=== PATIENT | male | born 1985 | race Two or more races ===

== ENCOUNTER 2019-10-06 09:14 | Inpatient (IN) | payer OTHER ==
[~2019-10-06] VITALS: Ht 175.3 cm; Wt 85.4 kg
[~2019-10-06 09:14] MED LIST: ETOMIDATE 40 MG/20 ML ONE; PROPOFOL 10 MG/ML, 100ML IV ONE; SUCCINYLCHOLINE 20 MG/ML, 10ML ONE
[2019-10-06] MEDS ORDERED: SODIUM CHLORIDE FLUSH 10ML SYR IVF ONE (09:30)
[2019-10-06] MEDS ORDERED: ETOMIDATE 40 MG/20 ML IVPush ONE (09:30)
[2019-10-06] MEDS ORDERED: SODIUM CHLORIDE 0.9% 1,000 ML IV ONE (09:30)
[2019-10-06] MEDS ORDERED: SUCCINYLCHOLINE 20 MG/ML, 10ML IVPush ONE (09:30)
[2019-10-06] MEDS ORDERED: SODIUM CHLORIDE 0.9% 1,000ML IVBOLUS ONE (09:30)
[2019-10-06 10:04] LABS: BASOPHILS # (AUTO) 0.03 x10^3/uL (0-0.1); BASOPHILS % (AUTO) 0 % (0-1); EOSINOPHILS # (AUTO) 0.05 x10^3/uL (0-0.4); EOSINOPHILS % (AUTO) 1 % (1-7); LYMPHOCYTES # (AUTO) 2.28 x10^3/uL (1-3.4); LYMPHOCYTES % (AUTO) 25 % (22-44); MD NO; MEAN CORPUSCULAR HEMOGLOBIN 31.5 pg (27.5-34.5); MEAN CORPUSCULAR HGB CONC 33.2 g/dL (33.2-36.2); MEAN CORPUSCULAR VOLUME 94.9 fL (81-97); MEAN PLATELET VOLUME 6.3 fL (7.4-10.4); MONOCYTES # (AUTO) 0.51 x10^3/uL (0.2-0.8); MONOCYTES % (AUTO) 6 % (2-9); NEUTROPHILS # (AUTO) 6.36 x10^3/uL (1.8-6.8); NEUTROPHILS % (AUTO) 69 % (42-75); PLATELET COUNT 284 x10^3/uL (130-400); RED BLOOD COUNT 5.39 x10^6/uL (4.38-5.82); RED CELL DISTRIBUTION WIDTH 13.2 % (9.4-14.8)
[2019-10-06 10:16] LABS: MICROSCOPIC AUTO
[2019-10-06 10:17] LABS: ALANINE AMINOTRANSFERASE 34 U/L (12-78); ALBUMIN 3.9 g/dL (3.4-5.0); ANION GAP 11 mmol/L (5-15); CALCIUM 8.1 mg/dL (8.5-10.1); CHLORIDE 105 mmol/L (98-107); CREATININE 1.05 mg/dL (0.7-1.3)
[2019-10-06 10:19] LABS: ALKALINE PHOSPHATASE 85 U/L (45-117); BILIRUBIN,TOTAL 2.5 mg/dL (0.2-1.0); TOTAL PROTEIN 7.3 g/dL (6.4-8.2)
[2019-10-06] MEDS ORDERED: PROPOFOL 100 ML IV PRN (10:23)
[2019-10-06 10:27] LABS: SALICYLATE LEVEL < 1.7 mg/dL (2.8-20.0)
[2019-10-06 10:39] LABS: AMPHETAMINE SCREEN, URINE Negative (Negative); BARBITURATE SCREEN, URINE Negative (Negative); BENZODIAZEPINE SCREEN, URINE Negative (Negative); CANNABINOID SCREEN, URINE Positive (Negative); COCAINE SCREEN, URINE Negative (Negative); METHADONE SCREEN, URINE Negative (Negative); OPIATE SCREEN, URINE Negative (Negative)
[2019-10-06 10:57] LABS: FIO2 100 %
--- NOTE | 2019-10-06 10:58 | NUR ---
Late entry due to pt care: Pt GEO DAVIES at 0914 this morning. Pt was found on ground outside [facility] this morning. On EMS arrival pt's FSBS was 44. After admin of D10 IV by EMS pt's FSBS raised to 156. Pt remained unresponsive after this so Narcan was administered by EMS. Pt remained unresponsive. Emesis noted by EMS on ground by pt. Pt arrived to ER rm 41 and remained unresponsive, Dr. Au at bedside. Per Dr. Au pt to be intubated. Pt intubated at 0927 with an 8.0 tube, 25cm@teeth. Pt's skin PWD, no wounds noted. Pt unresponsive to interventions (markham, OG tube insertion, PIV insertion), no withdrawl from painful stimuli. Dr. Au updated on pt condition. All monitors are in place, all safety measures observed.
[2019-10-06 11:02] LABS: INTERNATIONAL NORMALIZED RATIO 0.89 (0.93-1.1); PROTHROMBIN TIME 9.2 Seconds (9.6-11.5)
[2019-10-06] MEDS ORDERED: DEXTROSE 50%, 50ML SYRINGE ONE (11:38)
--- NOTE | 2019-10-06 11:42 | NUR ---
Pt FSBS =24. Dr. Au notified. Pt given 1 amp D50 IVP.
[2019-10-06] MEDS ORDERED: DEXTROSE 50%, 50ML SYRINGE IVPush ONE (12:00)
[2019-10-06] MEDS ORDERED: SODIUM CHLORIDE 0.9% 1,000 ML IV SCH (12:49)
--- NOTE | 2019-10-06 12:55 | NUR ---
Dr. Au updated on pt's VS and FSBS. No new orders recieved.
[2019-10-06] MEDS ORDERED: ONDANSETRON 2MG/ML, 2ML IVPush PRN (13:00)
--- NOTE | 2019-10-06 13:05 | NUR ---
Attempt x1 to call report to floor.
--- NOTE | 2019-10-06 13:10 | NUR ---
Pt unresponsive to painful stimuli. Pupils pinpoint and fixed.
[2019-10-06 13:33] LABS: TROPONIN I < 0.015 ng/mL (0.000-0.045)
--- NOTE | 2019-10-06 13:46 | NUR ---
Report called to Clementina JEFFERY in CCU. Floor ready for pt transport.
[2019-10-06] MEDS ORDERED: NOREPINEPHRINE 8 MG in SODIUM CHLORIDE 0.9% 242 ML IV PRN (14:08)
[2019-10-06] MEDS: D5%-0.9% NACL 1,000 ML IV SCH (14:16)
[2019-10-06] MEDS ORDERED: GLUCAGON 1 MG IM PRN ×2 (14:30→16:00)
[2019-10-06] MEDS ORDERED: PHARMACY MAY ADJ FOR RENAL FX MC SCH (14:30)
[2019-10-06] MEDS ORDERED: SENNA 176 MG/5 ML ORAL SOL NG PRN (14:30)
[2019-10-06] MEDS ORDERED: DEXTROSE 4 GM TAB.CHEW PO PRN ×2 (14:30→16:00)
[2019-10-06] MEDS ORDERED: MIDAZOLAM 1 MG/ML, 2ML IVPush PRN (14:30)
[2019-10-06] MEDS ORDERED: DEXTROSE 50%, 50ML SYRINGE IVPush PRN ×2 (14:30→16:00)
[2019-10-06] MEDS ORDERED: SENNA/DOCUSATE TABLET NG PRN (14:30)
[2019-10-06] MEDS ORDERED: BISACODYL 10 MG SUPP PR PRN (14:30)
[2019-10-06] MEDS ORDERED: LACTULOSE 20 GM/30 ML UDC NG PRN (14:30)
[2019-10-06] MEDS ORDERED: LIDOCAINE-MPF 1%, 2ML ENDO PRN (14:30)
[2019-10-06] MEDS ORDERED: FENTANYL PF 100 MCG/2ML IVPush PRN (14:30)
[2019-10-06] MEDS: ENOXAPARIN 40 MG/0.4 ML SQ SCH (14:50)
[2019-10-06 14:58] VITALS: BP 110/78
[2019-10-06 15:01] LABS: TROPONIN I < 0.015 ng/mL (0.000-0.045)
[2019-10-06 15:18] LABS: INTERNATIONAL NORMALIZED RATIO 0.89 (0.93-1.1); PROTHROMBIN TIME 9.2 Seconds (9.6-11.5)
[2019-10-06] MEDS ORDERED: POTASSIUM CHLORIDE 40 MEQ in SODIUM CHLORIDE 0.9% 500 ML IV ONE (16:00)
[2019-10-06] MEDS: AMPICILLIN/SULBACTAM 3 GM in SODIUM CHLORIDE 0.9% 100 ML IV SCH ×2 (16:26→22:20)
[2019-10-06] MEDS: PROPOFOL 100 ML IV PRN ×2 (17:28→21:09)
[2019-10-06] MEDS: THIAMINE 200 MG in SODIUM CHLORIDE 0.9% 50 ML IV SCH (17:59)
[2019-10-06 19:48] LABS: ANION GAP 7 mmol/L (5-15); CALCIUM 6.8 mg/dL (8.5-10.1); CHLORIDE 114 mmol/L (98-107); CREATININE 0.92 mg/dL (0.7-1.3)
[2019-10-06 19:52] LABS: TROPONIN I < 0.015 ng/mL (0.000-0.045)
[2019-10-06] MEDS ORDERED: SODIUM CHLORIDE FLUSH 10ML SYR IVF SCH (21:00)
[2019-10-06] MEDS: SODIUM CHLORIDE FLUSH 10ML SYR IVF SCH (21:08)
[2019-10-07] MEDS: PROPOFOL 100 ML IV PRN ×3 (00:03→07:57)
[2019-10-07] MEDS: MIDAZOLAM HCL 50 MG in SODIUM CHLORIDE 0.9% 40 ML IV PRN ×2 (00:29→06:29)
[2019-10-07] MEDS: D5%-0.9% NACL 1,000 ML IV SCH (02:07)
[2019-10-07] MEDS: AMPICILLIN/SULBACTAM 3 GM in SODIUM CHLORIDE 0.9% 100 ML IV SCH ×2 (03:53→10:18)
[2019-10-07 04:56] LABS: BASOPHILS # (AUTO) 0.02 x10^3/uL (0-0.1); BASOPHILS % (AUTO) 0 % (0-1); EOSINOPHILS # (AUTO) 0.02 x10^3/uL (0-0.4); EOSINOPHILS % (AUTO) 0 % (1-7); LYMPHOCYTES # (AUTO) 1.48 x10^3/uL (1-3.4); LYMPHOCYTES % (AUTO) 18 % (22-44); MD NO; MEAN CORPUSCULAR HEMOGLOBIN 31.5 pg (27.5-34.5); MEAN CORPUSCULAR HGB CONC 33.1 g/dL (33.2-36.2); MEAN CORPUSCULAR VOLUME 95.4 fL (81-97); MEAN PLATELET VOLUME 6.2 fL (7.4-10.4); MONOCYTES % (AUTO) 5 % (2-9); NEUTROPHILS # (AUTO) 6.19 x10^3/uL (1.8-6.8); NEUTROPHILS % (AUTO) 76 % (42-75); PLATELET COUNT 192 x10^3/uL (130-400); RED BLOOD COUNT 4.57 x10^6/uL (4.38-5.82); RED CELL DISTRIBUTION WIDTH 13.3 % (9.4-14.8)
[2019-10-07 04:57] LABS: CHLORIDE 116 mmol/L (98-107)
[2019-10-07 05:00] VITALS: BP 94/64
[2019-10-07 05:07] LABS: ALANINE AMINOTRANSFERASE 29 U/L (12-78); ALBUMIN 2.9 g/dL (3.4-5.0); ALKALINE PHOSPHATASE 51 U/L (45-117); ANION GAP 6 mmol/L (5-15); BILIRUBIN,TOTAL 0.8 mg/dL (0.2-1.0); CALCIUM 7.2 mg/dL (8.5-10.1); CREATININE 0.93 mg/dL (0.7-1.3); PREALBUMIN 25.8 mg/dL (20.0-40.0); TOTAL PROTEIN 5.7 g/dL (6.4-8.2)
[2019-10-07] MEDS ORDERED: PANTOPRAZOLE 40 MG IV IVPush SCH (07:30)
[2019-10-07] MEDS: SODIUM CHLORIDE FLUSH 10ML SYR IVF SCH (07:30)
[2019-10-07] MEDS ORDERED: D5%-0.45% NACL 1,000 ML IV SCH (09:00)
[2019-10-07] MEDS ORDERED: DEXMEDETOMIDINE 400 MCG in SODIUM CHLORIDE 0.9% 96 ML IV PRN (09:00)
[2019-10-07] MEDS: THIAMINE 200 MG in SODIUM CHLORIDE 0.9% 50 ML IV SCH (09:05)
[2019-10-07] MEDS ORDERED: MULTIVIT-MINERALS/IRON ORAL SOL PO SCH (11:30)
[2019-10-07] MEDS ORDERED: MULTIVIT.W/IRON, MINERALS ORAL SOL PO SCH (11:30)
[2019-10-07] MEDS ORDERED: MULTIVITAMIN 1 TABLET PO SCH (11:30)
[2019-10-07] MEDS ORDERED: CHLORDIAZEPOXIDE 25 MG CAPSULE PO SCH (11:30)
[2019-10-07] MEDS ORDERED: FOLIC ACID 1 MG TABLET PO SCH (11:30)
[2019-10-07] MEDS: ENOXAPARIN 40 MG/0.4 ML SQ SCH (12:56)
== END 2019-10-07 13:20 | disposition left against medical advice (07) | DRG 91 ==
LOC: EDBD 09:14 → ED 11:09 → EDIP 11:26 → CCU 14:00
PROVIDERS: ADMIT Internal Medicine; ATTEND Internal Medicine
PROC: 0T9B70Z Drainage of Bladder with Drainage Device, Via Natural or Artificial Opening (ICD-10-PCS; principal; 2019-10-06)
PROC: 0BH17EZ Insertion of Endotracheal Airway into Trachea, Via Natural or Artificial Opening (ICD-10-PCS; 2019-10-06)
PROC: 5A1935Z Respiratory Ventilation, Less than 24 Consecutive Hours (ICD-10-PCS; 2019-10-06)
DX: G92 Toxic encephalopathy (principal); R40.20 Unspecified coma; J96.02 Acute respiratory failure with hypercapnia; E87.2 Acidosis; Z99.11 Dependence on respirator [ventilator] status; Z53.29 Procedure and treatment not carried out because of patient's decision for other reasons; E16.2 Hypoglycemia, unspecified; E87.6 Hypokalemia; F10.129 Alcohol abuse with intoxication, unspecified; Y90.3 Blood alcohol level of 60-79 mg/100 ml; Z79.899 Other long term (current) drug therapy
CPT/HCPCS: 36415; 36600; 73030; J7042; 31500; 70450; 71045; 72125; 80048; 80053; 80307; 81001; 82140; 82533; 82550; 82803; 82962; 83605; 83690; 83735; 84100; 84134; 84443; 84478; 84484; 85025; 85610; 85730; 87040; 87070; 87081; 87205; 93005; 94002; 94003; 94150; 96361; 96374; 96375; G0378; J0295; J1650; J2250; J2704; J3010; J3411; J3480; C9113; J0330; J7030; J7040

== ENCOUNTER 2019-10-07 17:40 | Emergency (ER) | payer OTHER ==
[~2019-10-07] VITALS: Ht 172.7 cm; Wt 80.0 kg
--- NOTE | 2019-10-07 17:54 | NUR ---
DOROTHEA. REPORT RECEIVED FROM EMS. PT HAD 8 MOUTH FULL HAND PILOT SUBMERSIBLE AROUND 6PM TODAY. PT C/O NAUSEA. PT STATED "I WANNA BE DRUNK. I'M ALCOHOLIC." DENIES SI/HI. PT'S AOX4. RESPS EVEN AND UNLABORED. BP/SPO2 MONITORS IN PLACE. CALL LIGHT WITHIN REACH.
--- NOTE | 2019-10-07 17:56 | NUR ---
PA AT BEDSIDE EVALUATING AT THIS TIME.
--- NOTE | 2019-10-07 18:29 | NUR ---
DIET TRAY ORDERED PER REQUEST AT THIS TIME.
--- NOTE | 2019-10-07 18:35 | NUR ---
BG 63 AT THIS TIME. WARM BLANKET GIVEN PER REQUEST.
[2019-10-07 18:38] LABS: ALANINE AMINOTRANSFERASE 36 U/L (12-78); ALBUMIN 3.2 g/dL (3.4-5.0); ANION GAP 11 mmol/L (5-15); CALCIUM 7.6 mg/dL (8.5-10.1); CHLORIDE 111 mmol/L (98-107); CREATININE 1.17 mg/dL (0.7-1.3)
[2019-10-07 18:41] LABS: ALKALINE PHOSPHATASE 54 U/L (45-117); BILIRUBIN,TOTAL 1.7 mg/dL (0.2-1.0); TOTAL PROTEIN 6.3 g/dL (6.4-8.2)
[2019-10-07 18:42] LABS: BASOPHILS # (AUTO) 0.02 x10^3/uL (0-0.1); BASOPHILS % (AUTO) 0 % (0-1); EOSINOPHILS # (AUTO) 0.14 x10^3/uL (0-0.4); EOSINOPHILS % (AUTO) 1 % (1-7); LYMPHOCYTES # (AUTO) 0.71 x10^3/uL (1-3.4); LYMPHOCYTES % (AUTO) 6 % (22-44); MD NO; MEAN CORPUSCULAR HEMOGLOBIN 31.5 pg (27.5-34.5); MEAN CORPUSCULAR VOLUME 95.2 fL (81-97); MEAN PLATELET VOLUME 6.4 fL (7.4-10.4); MONOCYTES # (AUTO) 0.37 x10^3/uL (0.2-0.8); MONOCYTES % (AUTO) 3 % (2-9); NEUTROPHILS # (AUTO) 9.79 x10^3/uL (1.8-6.8); NEUTROPHILS % (AUTO) 89 % (42-75); PLATELET COUNT 209 x10^3/uL (130-400); RED BLOOD COUNT 4.69 x10^6/uL (4.38-5.82); RED CELL DISTRIBUTION WIDTH 13.1 % (9.4-14.8)
--- NOTE | 2019-10-07 18:57 | NUR ---
REPORT RECEIVED FROM LATIA DODGE. PT UP AT DOORWAY AND INTO [place], PT EDUCATED THAT HE NEEDS TO STAY IN HIS ROOM. PT GIVEN MEAL TRAY. CHART UP FOR RECHECK.
--- NOTE | 2019-10-07 18:58 | NUR ---
REPORT GIVEN TO DAYSI JEFFERY.
[2019-10-07 19:13] VITALS: BP 125/68
== END 2019-10-07 19:23 | disposition home or self-care (01) ==
LOC: ED 18:32
DX: F10.120 Alcohol abuse with intoxication, uncomplicated (principal); Y90.9 Presence of alcohol in blood, level not specified
CPT/HCPCS: 36415; 80053; 80307; 82962; 85025; 99283

== ENCOUNTER 2019-10-11 15:36 | Emergency (ER) | payer SELFPAY ==
[~2019-10-11] VITALS: Ht 177.8 cm; Wt 93.0 kg
--- NOTE | 2019-10-11 15:55 | NUR ---
TASK RN: PT STRAIGHT TO TR03 FROM TRIAGE. 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 PT AWAKE. FRIEND DROPPED OFF PATIENT AND LEFT BUS TICKET SINCE PT IS SCHEDULED TO GO BACK HOME TOMORROW AFTERNOON. BILATERAL PIV ESTABLISHED. BLOOD OBTAINED. EDMD BEDSIDE. ASHIA
--- NOTE | 2019-10-11 15:59 | NUR ---
TASK RN: PT HAS HICCUPS. SUCTION SET UP. BEDSIDE REPORT TO LATIA FERNANDEZ
--- NOTE | 2019-10-11 16:07 | NUR ---
MASOUD GUZMAN [phone] HOME [phone] CELL
[2019-10-11 16:39] LABS: BASOPHILS # (AUTO) 0.01 x10^3/uL (0-0.1); BASOPHILS % (AUTO) 0 % (0-1); EOSINOPHILS # (AUTO) 0.01 x10^3/uL (0-0.4); EOSINOPHILS % (AUTO) 0 % (1-7); LYMPHOCYTES # (AUTO) 1.36 x10^3/uL (1-3.4); LYMPHOCYTES % (AUTO) 12 % (22-44); MD NO; MEAN CORPUSCULAR HEMOGLOBIN 31.7 pg (27.5-34.5); MEAN CORPUSCULAR VOLUME 96.3 fL (81-97); MEAN PLATELET VOLUME 6.5 fL (7.4-10.4); MONOCYTES # (AUTO) 0.45 x10^3/uL (0.2-0.8); MONOCYTES % (AUTO) 4 % (2-9); NEUTROPHILS % (AUTO) 84 % (42-75); PLATELET COUNT 206 x10^3/uL (130-400); RED BLOOD COUNT 4.65 x10^6/uL (4.38-5.82); RED CELL DISTRIBUTION WIDTH 13.4 % (9.4-14.8)
[2019-10-11 16:47] LABS: ALANINE AMINOTRANSFERASE 57 U/L (12-78); ALBUMIN 3.4 g/dL (3.4-5.0); ANION GAP 9 mmol/L (5-15); CALCIUM 8.6 mg/dL (8.5-10.1); CHLORIDE 106 mmol/L (98-107); CREATININE 2.44 mg/dL (0.7-1.3)
[2019-10-11 16:49] LABS: ALKALINE PHOSPHATASE 102 U/L (45-117); BILIRUBIN,TOTAL 0.4 mg/dL (0.2-1.0); TOTAL PROTEIN 7.1 g/dL (6.4-8.2)
[2019-10-11 16:57] LABS: SALICYLATE LEVEL < 1.7 mg/dL (2.8-20.0)
--- NOTE | 2019-10-11 17:00 | NUR ---
TASK RN: PT STANDING BEDSIDE URINATING. PT HAS STEADY GAIT. PT ASKED TO SIT BACK ON GURNEY. LINENS CHANGED. PT IN DRY GOWN. ASHIA.
[2019-10-11 17:13] VITALS: BP 121/74
--- NOTE | 2019-10-11 17:19 | NUR ---
TASK RN: BEDSIDE REPORT TO LATIA MAHARAJ.
--- NOTE | 2019-10-11 17:38 | NUR ---
PT TO BE MTF.
--- NOTE | 2019-10-11 18:07 | NUR ---
PT RESTING COMFORTABLY ON HOSPITAL BED. RESP EVEN AND UNLABORED. PT IN DIRECT SIGHT OF SITTER.
[2019-10-11 18:10] LABS: MICROSCOPIC AUTO
[2019-10-11 18:15] LABS: AMPHETAMINE SCREEN, URINE Negative (Negative); BARBITURATE SCREEN, URINE Negative (Negative); BENZODIAZEPINE SCREEN, URINE Negative (Negative); CANNABINOID SCREEN, URINE Negative (Negative); COCAINE SCREEN, URINE Negative (Negative); METHADONE SCREEN, URINE Negative (Negative); OPIATE SCREEN, URINE Negative (Negative)
--- NOTE | 2019-10-11 18:40 | NUR ---
PT STATED HE WANTED TO LEAVE. PT ENCOURAGED TO STAY. PT AT [facility]. PT STATES HE WILL REST FOR A WHILE. PT PROVIDED CLEAN CLOTHES FOR DC.
== END 2019-10-11 19:28 | disposition home or self-care (01) ==
LOC: ED 19:10
DX: T65.92XA Toxic effect of unspecified substance, intentional self-harm, initial encounter (principal); F10.129 Alcohol abuse with intoxication, unspecified; I51.7 Cardiomegaly; R94.31 Abnormal electrocardiogram [ECG] [EKG]; Y92.89 Other specified places as the place of occurrence of the external cause; Y90.9 Presence of alcohol in blood, level not specified
CPT/HCPCS: 36415; 71045; 80053; 80307; 81001; 85025; 87077; 87086; 87186; 93005; 99285

== ENCOUNTER 2019-10-14 12:56 | Emergency (ER) | payer OTHER ==
[~2019-10-14] VITALS: Ht 167.6 cm; Wt 91.2 kg
[2019-10-14] MEDS ORDERED: SODIUM CHLORIDE 0.9% 1,000 ML IV ONE (13:10)
[2019-10-14] MEDS ORDERED: SODIUM CHLORIDE FLUSH 10ML SYR IVF ONE (13:30)
[2019-10-14] MEDS ORDERED: THIAMINE 100 MG in SODIUM CHLORIDE 0.9% 50 ML IVPB ONE (13:30)
--- NOTE | 2019-10-14 13:45 | NUR ---
BREAK RN NOTE: PIV ESTABLISHED BY COSMETOLOGIST STUDENT WITH THIS RN'S SUPERVISION, THIAMINE INFUSING VIA IV PUMP, NS INFUSING AT 250ML /HR. PT IS A&O, INTERMITTENTLY CRYING STATING THAT HE WALKED TO VANE "FOR A WOMAN." PT ON ALL MONITORS, SINUS TACH RATE 90'S WITH NO ECTOPY. AWAITING LABS AND DISPO.
[2019-10-14 13:46] LABS: ALANINE AMINOTRANSFERASE 46 U/L (12-78); ALBUMIN 2.8 g/dL (3.4-5.0); ANION GAP 9 mmol/L (5-15); CALCIUM 7.8 mg/dL (8.5-10.1); CHLORIDE 110 mmol/L (98-107); CREATININE 1.18 mg/dL (0.7-1.3)
[2019-10-14 13:55] LABS: ALKALINE PHOSPHATASE 78 U/L (45-117); BILIRUBIN,TOTAL 0.6 mg/dL (0.2-1.0); TOTAL PROTEIN 6.1 g/dL (6.4-8.2)
--- NOTE | 2019-10-14 14:00 | NUR ---
PT UPRIGHT ON GURNEY AWAKE & MILDLY RESTLESS, EASILY REDIRECTED, RESPONDS TO STAFF QUESTIONS, PERSISTENT HICCUPS BUT NAD, COMFORT MEASURES PROVIDED, CALL LIGHT WITHIN REACH.
--- NOTE | 2019-10-14 14:01 | NUR ---
REPORT GIVEN BACK TO PRIMARY RN
[2019-10-14 14:48] LABS: ACETONE, SERUM Trace (Negative)
[2019-10-14 15:03] VITALS: BP 114/74
--- NOTE | 2019-10-14 15:03 | NUR ---
PT REMAINS UPRIGHT ON GURNEY AWAKE & EATING MEAL TRAY GIVEN, RESPONDS TO STAFF QUESTIONS, PERSISTENT HICCUPS BUT NAD, COMFORT MEASURES PROVIDED, CALL LIGHT WITHIN REACH.
--- NOTE | 2019-10-14 16:04 | NUR ---
PT CALMLY SLEEPING ON HOSPITAL BED, NAD WITH EQUAL CHEST RISE/FALL, NO NEEDS AT THIS TIME, CALL LIGHT WITHIN REACH.
--- NOTE | 2019-10-14 17:01 | NUR ---
PT CONTINUES TO SLEEP ON GURNEY, NAD WITH EQUAL CHEST RISE/FALL, NO NEEDS AT THIS TIME, CALL LIGHT WITHIN REACH.
--- NOTE | 2019-10-14 18:03 | NUR ---
PT CALMLY SLEEPING ON GURNEY, NAD WITH EQUAL CHEST RISE/FALL, NO NEEDS AT THIS TIME, CALL LIGHT WITHIN REACH.
--- NOTE | 2019-10-14 18:16 | NUR ---
DINNER TRAY GIVEN
--- NOTE | 2019-10-14 18:45 | NUR ---
PT ELOPED PRIOR TO RECEIVING DC INSTRUCTIONS, AMBULATED STEADILY, PWD.
== END 2019-10-14 18:47 | disposition left against medical advice (07) ==
LOC: ED 13:18
DX: F10.220 Alcohol dependence with intoxication, uncomplicated (principal); Y90.9 Presence of alcohol in blood, level not specified
CPT/HCPCS: 36415; 80053; 80307; 82010; 82800; 83930; 96365; 96366; 99284; J3411; J7030

== ENCOUNTER 2020-03-09 03:21 | Emergency (ER) | payer MEDICAID ==
[~2020-03-09] VITALS: Ht 170.2 cm; Wt 82.0 kg
[2020-03-09] MEDS ORDERED: BUPR150T8 PO (03:35)
[2020-03-09] MEDS ORDERED: ESCI5TAB25 PO (03:35)
--- NOTE | 2020-03-09 03:43 | NUR ---
patient cooperative with care. in NAD. denies SI/HI at this time but states he was drinking hand senior python developer for past 3 days to "off himself". warm blankets provided. patient changed into hospital gown. clear speech with some moments of slurring.
--- NOTE | 2020-03-09 03:49 | NUR ---
urinal provided to patient and notified that we need a urine sample
[2020-03-09 03:59] LABS: BASOPHILS % (AUTO) 1 % (0-1); EOSINOPHILS % (AUTO) 0 % (1-7); LYMPHOCYTES % (AUTO) 6 % (22-44); MEAN CORPUSCULAR HEMOGLOBIN 31.5 pg (27.5-34.5); MEAN CORPUSCULAR HGB CONC 34.2 g/dL (33.2-36.2); MEAN PLATELET VOLUME 6.6 fL (7.4-10.4); MONOCYTES % (AUTO) 5 % (2-9); NEUTROPHILS % (AUTO) 89 % (42-75); PLATELET COUNT 198 x10^3/uL (130-400); RED CELL DISTRIBUTION WIDTH 15.7 % (9.4-14.8)
[2020-03-09 04:10] LABS: ALBUMIN 3.3 g/dL (3.4-5.0); ANION GAP 9 mmol/L (5-15); CALCIUM 7.9 mg/dL (8.5-10.1); CHLORIDE 98 mmol/L (98-107); SALICYLATE LEVEL < 1.7 mg/dL (2.8-20.0)
[2020-03-09 04:21] LABS: ALANINE AMINOTRANSFERASE 46 U/L (12-78); ALKALINE PHOSPHATASE 70 U/L (45-117); BILIRUBIN,TOTAL 1.1 mg/dL (0.2-1.0); TOTAL PROTEIN 6.5 g/dL (6.4-8.2)
--- NOTE | 2020-03-09 04:35 | NUR ---
Queta BRAND notified of critical etoh level of 0.437. I requested patient to use urinal. I had to sternal rub patient x3 times for him to respond to stimuli. PA notified of this as well. resting in bed comfortably. no needs at this time. will continue to monitor for safety
[2020-03-09 05:18] LABS: MD SCAN
--- NOTE | 2020-03-09 05:30 | NUR ---
patient placed on 2L via NC due to decreased o2 sat.
--- NOTE | 2020-03-09 06:17 | NUR ---
report given to Nidia JEFFERY
--- NOTE | 2020-03-09 07:04 | NUR ---
PT AWAKE AND ALERT, COMPLAINING ABOUT EAR PAIN. REPORT GIVEN TO ISA JEFFERY
--- NOTE | 2020-03-09 07:12 | NUR ---
RECEIVED REPORT FRO PA JEFFERY. DR. DONAHUE MADE AWARE OF LEFT EAR PAIN A DIS CURRENTLY AT BEDSIDE TO EXAMINE EAR. PT GIVEN WATER PER REQUEST.
[2020-03-09] MEDS ORDERED: IBUPROFEN 200 MG TABLET PO ONE (07:30)
[2020-03-09] MEDS ORDERED: CEFTRIAXONE 1,000 MG IM ONE (07:30)
[2020-03-09] MEDS ORDERED: LIDOCAINE-MPF 1%, 5ML ONE (07:38)
[2020-03-09] MEDS ORDERED: CEFTRIAXONE 1,000 MG ONE (07:38)
[2020-03-09] MEDS ORDERED: IBUPROFEN 200 MG TABLET ONE (07:38)
[2020-03-09 09:15] VITALS: BP 110/79
== END 2020-03-09 09:18 | disposition home or self-care (01) ==
LOC: ED 08:38
DX: F10.229 Alcohol dependence with intoxication, unspecified (principal); G31.2 Degeneration of nervous system due to alcohol; F32.0 Major depressive disorder, single episode, mild; H66.002 Acute suppurative otitis media without spontaneous rupture of ear drum, left ear; F17.200 Nicotine dependence, unspecified, uncomplicated; Z72.9 Problem related to lifestyle, unspecified; Y90.9 Presence of alcohol in blood, level not specified
CPT/HCPCS: 36415; 80053; 80299; 80320; 80329; 84443; 85025; 96372; 99283; J0696; G0480

== ENCOUNTER 2020-03-10 02:34 | Emergency (ER) | payer MEDICAID ==
[~2020-03-10] VITALS: Ht 170.2 cm; Wt 87.0 kg
[~2020-03-10 02:34] MED LIST changes: +BUPR150T8 PO; +ESCI5TAB25 PO; -ETOMIDATE 40 MG/20 ML ONE; -PROPOFOL 10 MG/ML, 100ML IV ONE; -SUCCINYLCHOLINE 20 MG/ML, 10ML ONE
--- NOTE | 2020-03-10 02:39 | NUR ---
NIL X 1 WHEN CALLED FOR TRIAGE.
[2020-03-10 02:42] VITALS: BP 123/91
--- NOTE | 2020-03-10 02:54 | NUR ---
CC OF LEFT EAR PAIN, HAS BEEN SEEN AT [facility] FOR SAME, WASN'T ABLE TO FILL PRESCRIPTION. PT RESTING IN [place]IN WITH HICCUPS.
[2020-03-10] MEDS ORDERED: AMOXICILLIN 500 MG CAPSULE PO ONE (03:00)
[2020-03-10] MEDS ORDERED: IBUPROFEN 200 MG TABLET PO ONE (03:00)
[2020-03-10] MEDS ORDERED: AMOXICILLIN 500 MG CAPSULE ONE (03:02)
[2020-03-10] MEDS ORDERED: IBUPROFEN 200 MG TABLET ONE (03:03)
== END 2020-03-10 03:18 | disposition home or self-care (01) ==
LOC: ED 02:53
DX: H66.002 Acute suppurative otitis media without spontaneous rupture of ear drum, left ear (principal); Z88.8 Allergy status to other drugs, medicaments and biological substances
CPT/HCPCS: 99283

== ENCOUNTER 2020-04-26 15:59 | Emergency (ER) | payer MEDICAID ==
[~2020-04-26] VITALS: Ht 195.6 cm; Wt 80.0 kg
[~2020-04-26 15:59] MED LIST changes: -ESCI5TAB25 PO; +ESCI5TAB8 PO
--- NOTE | 2020-04-26 16:26 | NUR ---
PT BIB EMS FOR ETOH INTOXICATION. NO INJURIES OR TRAUMA. PT AWAKE AND SLURRING WORDS. PT ON MONITOR.
[2020-04-26] MEDS ORDERED: THIAMINE 100 MG/ML, 2ML ONE (16:51)
[2020-04-26] MEDS ORDERED: THIAMINE 100 MG/ML, 2ML IM ONE (17:00)
[2020-04-26 17:09] LABS: BASOPHILS % (AUTO) 1 % (0-1); EOSINOPHILS % (AUTO) 3 % (1-7); LYMPHOCYTES % (AUTO) 31 % (22-44); MEAN CORPUSCULAR HEMOGLOBIN 31.3 pg (27.5-34.5); MEAN CORPUSCULAR HGB CONC 33.3 g/dL (33.2-36.2); MEAN PLATELET VOLUME 6.4 fL (7.4-10.4); MONOCYTES % (AUTO) 4 % (2-9); NEUTROPHILS % (AUTO) 61 % (42-75); PLATELET COUNT 310 x10^3/uL (130-400); RED BLOOD COUNT 4.22 x10^6/uL (4.38-5.82)
[2020-04-26 17:10] LABS: MD NO
[2020-04-26 17:13] LABS: ALBUMIN 3.3 g/dL (3.4-5.0); ANION GAP 7 mmol/L (5-15); CALCIUM 7.4 mg/dL (8.5-10.1); CHLORIDE 115 mmol/L (98-107)
[2020-04-26 17:16] LABS: ALANINE AMINOTRANSFERASE 24 U/L (12-78); ALKALINE PHOSPHATASE 61 U/L (45-117); BILIRUBIN,TOTAL 0.4 mg/dL (0.2-1.0); CREATININE 0.92 mg/dL (0.7-1.3); TOTAL PROTEIN 6.6 g/dL (6.4-8.2)
--- NOTE | 2020-04-26 17:16 | NUR ---
PT RESTING, VSS, BED RAILS IN PLACE.
--- NOTE | 2020-04-26 18:48 | NUR ---
REPORT TO ARSENIO
[2020-04-26 19:09] VITALS: BP 122/76
--- NOTE | 2020-04-26 19:10 | NUR ---
PATIENT RESTING IN BED IN NAD. CALL JASSO IN REACH VITALS REMAIN STABLE. WILL CONTINE TO MONITOR. SAFETY MAINTAINED
--- NOTE | 2020-04-26 20:04 | NUR ---
PATIENT ASKED FOR SNACK WHICH WERE PROVIDED BY OTHER RN. NO ISSUES WITH SWALLOW. PATIENT REMOVED O2 PROBE AND THIS WAS RE-APPLIED. WILL CONTINUE TO MONITOR. SAFETY MAINTAINED.
--- NOTE | 2020-04-26 20:18 | NUR ---
CALLED PATIENT'S BROTHER, AALIYAH, AND BROTHER UNABLE TO PICK PATIENT UP DUE TO HE IS NOT IN THE STATE. PATIENT DOES NOT WANT ME TO DISCLOSE WHY PATIENT IS HERE IN THE ER SO THIS WAS KEPT CONFIDENTIAL. CALLED TWICE AND LEFT VM. UNABLE TO REACH.
--- NOTE | 2020-04-26 20:22 | NUR ---
SISTER, MASOUD, CALLED PER PT REQUEST AND SHE ALSO DOES NOT LIVE IN STATE AND IS UNABLE TO COME GET PATIENT. PATIENT STANDING UP IN ROOM. REQUESTING FOOD.
--- NOTE | 2020-04-26 20:36 | NUR ---
PATIENT RESTLESS IN ROOM. SITTING ON FLOOR. REFUSING TO STAY IN BED TO MONITOR VS. PROVIDER NOTIFIED OF THIS. PATIENT CONTINUES TO REQUEST FOOD
--- NOTE | 2020-04-26 20:41 | NUR ---
PATIENT SITTING ON FLOOR. SANDWICH PROVIDED TO PATIENT.
--- NOTE | 2020-04-26 21:00 | NUR ---
PATIENT REFUSING TO STAY IN ROOM. DROPPING TOOLS IN HALLWAY. SLIGHTLY UNSTEADY WHILE STANDING BUT STEADY GAIT WITH OCCASSIONAL STAGGERING BUT ABLE TO WALK SAFELY. HAS HEAVY BACKPACK ON AND TOOL BELT WITH MULTIPLE LARGE TOOLS IN BELT. PATIENT WALKED TO PHONE NEAR REGISTRATION AND HE RESPONDED "TOUGH" WHEN I ASKED HIM TO STAY IN ROOM BECAUSE HE NEEDS TO SOBER UP A LITTLE MORE. PATIENT REPORTS "IM LEAVING AND THATS THAT". PATIENT ABLE TO CALL .
--- NOTE | 2020-04-26 21:10 | NUR ---
PATIENT WAITING IN WAITING ROOM SITTING UP IN CHAIR AND REPORTS "MY IS COMING TO GET ME. SHE SAID SHE SHOULD BE HERE SHORTLY. THANK YOU FOR ALL YOU DID FOR ME." SECURITY IN WAITING ROOM. UNABLE TO GET LAST SET OF VITALS DUE TO PATIENT NOT COOPERATING. EMAIL PRODUCER AWARE OF PATIENT REMAINING SLIGHTLY STAGGERING GAIT BUT NOT FOLLOWING REQUEST TO STAY IN ROOM. PROVIDER AND RN REQUESTING PATIENT GET RIDE HOME WITH SOBER WILDLIFE REFUGE SPECIALIST WHICH HE HAS OBTAINED. PATIENT LEFT ROOM WITH SCATTERED FOOD THROUGHOUT, LINENS SCATTERED, WATER ON FLOOR AND DRIPPING OFF RIVERO STAND. PATIENT WAS RESTLESS IN ROOM. NO SIGNS OF SEIZURE ACTIVITY. DISCAHRGE INSTRUCTIONS REVIEWED WITH PATIENT AND ALCOHOL ADDICTION RESOURCES PAMPHLETS PROVIDED TO PATIENT ON DC.
== END 2020-04-26 21:24 | disposition home or self-care (01) ==
LOC: ED 16:37
DX: F10.220 Alcohol dependence with intoxication, uncomplicated (principal); Y90.0 Blood alcohol level of less than 20 mg/100 ml; F17.210 Nicotine dependence, cigarettes, uncomplicated
CPT/HCPCS: 36415; 80053; 80320; 83690; 85025; 96372; 99283; J3411; G0480

== ENCOUNTER 2020-05-12 21:19 | Emergency (ER) | payer MEDICAID ==
[~2020-05-12] VITALS: Ht 170.2 cm; Wt 78.0 kg
[2020-05-12] MEDS ORDERED: LIDOCAINE 1%-EPI 1:100K, 20ML INFIL ONE (21:30)
--- NOTE | 2020-05-12 22:45 | NUR ---
PT RESTING IN BED, PT HAD OLD SUTURES IN FORE HEAD THAT WHERE REMOVED BY PROVIDER. PT DENIED ANY CURRENT WANTS OR NEEDS
--- NOTE | 2020-05-13 02:15 | NUR ---
PT RESTING IN BED, PT ON MONITOR WITH PT VSS.
[2020-05-13 02:17] VITALS: BP 117/69
--- NOTE | 2020-05-13 03:15 | NUR ---
TASK RN: PT RESTING ON GURNEY EYES CLOSED DENIES NEEDS
== END 2020-05-13 03:28 | disposition home or self-care (01) ==
LOC: ED 23:56
DX: F10.129 Alcohol abuse with intoxication, unspecified (principal); S01.81XD Laceration without foreign body of other part of head, subsequent encounter; X58.XXXD Exposure to other specified factors, subsequent encounter; Y90.0 Blood alcohol level of less than 20 mg/100 ml
CPT/HCPCS: 99283

== ENCOUNTER 2020-05-13 05:18 | Emergency (ER) | payer MEDICAID ==
[~2020-05-13] VITALS: Ht 172.7 cm; Wt 80.5 kg
--- NOTE | 2020-05-13 05:26 | NUR ---
Patient BIBA for ETOH. Patient brought in from [facility]. Security called because patient was intoxicated. Patient was d/c from this facility this am around 0330 for same. Patient is in NAD. Respirations even and unlabored.
--- NOTE | 2020-05-13 06:29 | NUR ---
PT SLEEPING IN BED WITH PT ON MONITOR, PT VSS. PT HAS UNLABORED BREATHING
--- NOTE | 2020-05-13 06:53 | NUR ---
REPORT TO MAMIE JEFFERY
--- NOTE | 2020-05-13 07:00 | NUR ---
SBAR RPT REC'D FROM BRANDON. PT CURRENTLY SLEEPPING, EVEN NON-LABORED RESP. NAD NOTED.
--- NOTE | 2020-05-13 08:30 | NUR ---
PT ARROUSES MINIMALLY TO VERBAL AND TACTILE STIMULATION AND EAST BUT DOES NOT OPEN EYES OR COMMUNICATE VERBALLY. VSS, RESP EVEN NON-LABORED. WILL CONT TO MONITOR
--- NOTE | 2020-05-13 09:08 | NUR ---
PROVIDER UPDATED, NEW ORDERS REC'D AND PT TO BE D/C
--- NOTE | 2020-05-13 09:37 | NUR ---
PT RESPOSITIONED MAX ASSIST. PT MOANS WHEN STIMULATED BUT NO COMPREHENSIBLE WORDS. VSS AND RESP REMAIN EVEN AND NON LABORED.
--- NOTE | 2020-05-13 10:58 | NUR ---
PT ARROUSES MINIMALLY TO TACTILE STIMULATION. WHEN ASKED HOW MUCH HE DRANK LAST NIGHT PT RESPONDS "ENOUGH" PT RTNS TO SLEEPING WHEN NOT STIM. RESP EVEN NON-LABORED.
--- NOTE | 2020-05-13 11:30 | NUR ---
PT INCONTINENT OF LARGE AMOUNT OF URINE, LINENS AND GOWN CHANGED. PT MORE RESPONSIVE AND WAS ABLE TO ROLL SIDE TO SIDE AND FOLLOW COMMANDS. PT GIVEN SIPS OF MILK AND TOLLERATED WELL. PT RTD TO SLEEPING WHEN NOT STIMULATED.
[2020-05-13 12:11] VITALS: BP 118/79
--- NOTE | 2020-05-13 12:26 | NUR ---
PT MORE AWAKE. LUNCH TRAY PROVIDED AND PT SITTING UP EATING INDEPENDENTLY.
--- NOTE | 2020-05-13 12:42 | NUR ---
PT ATE 50% OF PROVIDED MEAL. PT DRESSED HIMSELF INDEPENDENTLY. D/C REVIEWED WITH PT AND PT GIVEN BUS PASS AND NURSING HOME INFORMATION. PT D/C AMBULATORY WITH STEADY GAIT.
== END 2020-05-13 12:43 | disposition home or self-care (01) ==
LOC: ED 05:19
DX: F10.220 Alcohol dependence with intoxication, uncomplicated (principal); Y90.0 Blood alcohol level of less than 20 mg/100 ml
CPT/HCPCS: 99285

== ENCOUNTER 2020-05-22 17:30 | Emergency (ER) | payer MEDICAID ==
[~2020-05-22] VITALS: Ht 172.7 cm; Wt 80.0 kg
--- NOTE | 2020-05-22 17:43 | NUR ---
PATIENT BIB EMS WITH CHIEF C/O ETOH. PATIENT FOUND IN FRONT OF MEN'S TEMPORARY SHELTR WITH A "LARGE BOTTLE OF VODKA." VSS EN ROUTE, NO INTERVENTIONS EN ROUTE PER EMS. UPON ASSESSMENT PATIENT IS COOPERATIVE, ANSWERS QUESTIONS APPROPRIATELY, NODS OFF BUT EASILY AROUSED. NADN, VSS, SIDE RAILS UP X2, WARM BLANKET PROVIDED, CALL LIGHT WITHIN REACH.
--- NOTE | 2020-05-22 18:46 | NUR ---
INTERVENTIONAL NURSE AT BEDSIDE.
--- NOTE | 2020-05-22 18:54 | NUR ---
REPORT GIVEN TO LATIA SALAS FOR TRANSFER OF PATIENT CARE.
[2020-05-22 19:13] LABS: ANION GAP 12 mmol/L (5-15); CALCIUM 7.5 mg/dL (8.5-10.1); CHLORIDE 99 mmol/L (98-107); CREATININE 0.86 mg/dL (0.7-1.3)
[2020-05-22 19:16] LABS: ALBUMIN 2.7 g/dL (3.4-5.0)
[2020-05-22 19:20] LABS: SALICYLATE LEVEL < 1.7 mg/dL (2.8-20.0)
[2020-05-22 19:37] LABS: MEAN CORPUSCULAR HEMOGLOBIN 29.4 pg (27.5-34.5); MEAN CORPUSCULAR HGB CONC 32.7 g/dL (33.2-36.2); MEAN PLATELET VOLUME 7.3 fL (7.4-10.4); RED BLOOD COUNT 3.69 x10^6/uL (4.38-5.82); RED CELL DISTRIBUTION WIDTH 17.6 % (9.4-14.8)
--- NOTE | 2020-05-22 19:41 | NUR ---
BEDSIDE REPORT FROM MARITZA RN, PT CARE TRANSFERRED AT THIS TIME. PT MOVED TO ROOM 39 TO BE OBSERVED BY THIS RN. PT NAD, RESTING ON GURNEY, ARROUSABLE TO VERBAL STIMULATION, PLACED BACK ON SPO2/BP/ECG MONITORING, [facility]. [place]
[2020-05-22 20:04] LABS: MD YES; PLATELET COUNT 44 x10^3/uL (130-400)
[2020-05-22 20:10] LABS: BAND#(MANUAL) 0.05 x10^3/uL; BANDS%(MANUAL) 1 % (0-7); BASOS#(MANUAL) 0.05 x10^3/uL (0-0.1); BASOS% (MANUAL) 1 % (0-1); LYMPH#(MANUAL) 0.46 x10^3/uL (1-3.4); LYMPHS% (MANUAL) 9 % (22-44); MONOS#(MANUAL) 0.31 x10^3/uL (0.3-2.7); MONOS% (MANUAL) 6 % (2-9); SEG#(MANUAL) 4.23 x10^3/uL (1.8-6.8); SEGS% (MANUAL) 83 % (42-75)
[2020-05-22 20:13] LABS: TARGET CELLS 1+
[2020-05-22 20:15] LABS: <PLATELET ESTIMATE> DECREASED; HYPOCHROMIA 1+; OVALOCYTES 1+
[2020-05-22 20:16] LABS: <PLT MORPHOLOGY> NORMAL PLT MORPH
--- NOTE | 2020-05-22 21:26 | NUR ---
pt resting on gurney, nad, appears comfortable, eyes closed, even and unlabored respirations, bed in lowest, rails engaged, call light on lap, wctm
--- NOTE | 2020-05-22 22:09 | NUR ---
pt resting on gurney, nad, appears comfortable, NO CHANGE IN CONDITION, bed in lowest, rails engaged, call light on lap, wctm
--- NOTE | 2020-05-22 22:57 | NUR ---
pt resting on gurney, nad, appears comfortable, NO CHANGE IN CONDITION, bed in lowest, rails engaged, call light on lap, wctm
--- NOTE | 2020-05-22 23:26 | NUR ---
pt resting on gurney, nad, appears comfortable, no change in condition, bed in lowest, rails engaged, call light on lap, wctm.
[2020-05-23 00:41] VITALS: BP 123/73
--- NOTE | 2020-05-23 02:13 | NUR ---
PT PROVIDED NEW CLOTHES FOR CLEANLINESS, WHILE OBTAINING DC PAPERS, PT LEFT OUT OF ER WITH NEW CLOTHES. PT AMBULATORY WITH A SMOOTH AND STEADY GAIT TO RESTROOM PRIOR TO DC.
== END 2020-05-23 02:14 | disposition left against medical advice (07) ==
LOC: ED 05-23 02:08
DX: F10.220 Alcohol dependence with intoxication, uncomplicated (principal); D69.6 Thrombocytopenia, unspecified; Y90.0 Blood alcohol level of less than 20 mg/100 ml
CPT/HCPCS: 36415; 80048; 80143; 80179; 80320; 82040; 85025; 99285; G0480